=== PATIENT | female | born 1935 | race Caucasian/White ===

== ENCOUNTER 2020-06-23 14:11 | Emergency (ER) | payer BC, OTHER ==
[2020-06-23 14:26] VITALS: BMI 23.6
--- NOTE | 2020-06-23 14:31 | PDOC ---
History of Present Illness - General Chief Complaint: Injury Stated Complaint: FALL RIGHT LEG PAIN Time Seen by Provider: 06/23/20 14:28 - History of Present Illness Initial Comments: 06/23/20 15:26 85 F with HTN, A. fib , Macular degenration, HLD, MDD, dementia BIBA from [facility] for fall. Per EMS, patient had a fall 8 hours ago, on her knees, no LOC, no head hitting. Denies nausea, vomiting, change baseline. At the ED, she is hemodynamically stable, atraumatic Collateral from nursing staff at [facility] revealed she fell twice today. This morning was a witnessed fall on to her knees, no head hitting, LOC. Second fall was an unwitnessed fall. She was found laying on the side. Patient was known to have hip pain. She was able to walk with a walker on baseline. But due to her dementia, she found to walk without a walker. After the fall, she kept complaining of her right hip and knee pain. Code status : DNI, DNR, no IV fluid comfort only. Allergy: none. GENERAL/CONSTITUTIONAL: No fever or chills. No weakness. HEAD, EYES, EARS, NOSE AND THROAT: No change in vision. No ear pain or discharge. No sore throat. CARDIOVASCULAR: No chest pain or shortness of breath RESPIRATORY: No cough, wheezing, or hemoptysis. GASTROINTESTINAL: No nausea, vomiting, diarrhea or constipation. GENITOURINARY: No dysuria, frequency, or change in urination. MUSCULOSKELETAL: +right knee and hip pain. No neck or back pain. SKIN: No rash NEUROLOGIC: No headache, vertigo, loss of consciousness, or change in strength/sensation. ENDOCRINE: No increased thirst. No abnormal weight change HEMATOLOGIC/LYMPHATIC: No anemia, easy bleeding, or history of blood clots. ALLERGIC/IMMUNOLOGIC: No hives or skin allergy. PE GENERAL: Awake, not alert, and not oriented, in no acute distress, demented HEAD: No signs of trauma, normocephalic, atraumatic EYES: PERRLA, EOMI, sclera anicteric, conjunctiva clear ENT: Auricles normal inspection, hearing grossly normal, nares patent, oropharynx clear without exudates. Moist mucosa NECK: Normal ROM, supple, no lymphadenopathy, JVD, or masses LUNGS: No distress, speaks full sentences, clear to auscultation bilaterally HEART: Regular rate and rhythm, normal S1 and S2, no murmurs, rubs or gallops, peripheral pulses normal and equal bilaterally. ABDOMEN: Soft, nontender, normoactive bowel sounds. No guarding, no rebound. No masses EXTREMITIES : Normal inspection, Normal range of motion, no edema. No clubbing or cyanosis. +right hip tenderness NEUROLOGICAL: Cranial nerves II through XII grossly intact. Normal speech, normal gait, no focal sensorimotor deficits SKIN: Warm, Dry, normal turgor, no rashes or lesions noted Past History - Medical History Allergies/Adverse Reactions: Allergies Allergy/AdvReac Type Severity Reaction Status Date / Time No Known Allergies Allergy Verified 06/23/20 14:15 Home Medications: Ambulatory Orders Ascorbate Calcium [Vitamin C] 500 mg PO DAILY 03/07/20 Aspirin [ASA -] 81 mg PO DAILY 03/07/20 Atenolol [Tenormin -] 50 mg PO DAILY 03/07/20 Fluoxetine HCl 20 mg PO DAILY 03/07/20 Levothyroxine [Synthroid -] 50 mcg PO DAILY 03/07/20 Olmesartan Medoxomil 20 mg PO DAILY 03/07/20 Cardiac Disorders: Yes (a fib) COPD: No Dementia: Yes HTN: Yes Hypercholesterolemia: Yes Psychiatric Problems: Yes (depression) Thyroid Disease: Yes Other medical history: macular degeneration - Psycho-Social/Smoking History Smoking History: Never smoked Have you smoked in the past 12 months: No Information on smoking cessation initiated: No - Substance Abuse Hx (Audit-C & DAST Scrn) How often the patient has a drink containing alcohol: Never Score: In Men: 4 or > Positive; In Women: 3 or > Positive: 0 Screen Result (Pos requires Nsg. Audit-10AR): Negative In the last yr the pt used illegal drug/Rx for NonMed reason: No Score: Yes response is considered Positive: 0 Screen Result (Positive result requires Nsg. DAST-10): Negative *Physical Exam - Vital Signs Last Vital Signs Temp Pulse Resp BP Pulse Ox 98.9 F 58 L 16 165/90 96 06/23/20 14:15 06/23/20 14:15 06/23/20 14:15 06/23/20 14:15 06/23/20 14:15 Medical Decision Making - Medical Decision Making 06/23/20 16:13 Imaging then d/c CT scan of the pelvis revealed minimal displaced avulsion fracture of the right greater trochanter. . Called ortho and Made an appointment for her to see outpatient. Patient is safe to go back to the facility. Discharge - Discharge Information Problems reviewed: Yes Clinical Impression/Diagnosis: Closed avulsion fracture of greater trochanter of femur Qualifiers: Encounter type: initial encounter Laterality: right Qualified Code(s): S72.111A - Displaced fracture of greater trochanter of right femur, initial encounter for closed fracture Condition: Stable Disposition: SNF FACILITY - Follow up/Referral Referrals: Karlo Valdes MD [Staff Physician] - Austin Pop [Primary Care Provider] - Johnny Allen MD [Staff Physician] - - Patient Discharge Instructions Additional Instructions: You were seen in the ER for a small avulsion fracture on the greater trochanter of your femur. Although this fracture is causing some pain, you do not need any surgical repair or casting or other intervention at this time. You may return to your chcf facility and weight bear as tolerated. Use your walker every time you walk. Follow up with Dr. Valdes in his clinic at [facility] this (call the number indicated in this packet to make an appointment). Take Tylenol 650 mg every 4 hours for pain. Come back to the ER for any worsening pain and swelling, numbness, tingling, or other emergency concerns. - Post Discharge Activity
--- NOTE | 2020-06-23 15:33 | PDOC ---
Attending Attestation - Resident Resident Name: Ernie French - ED Attending Attestation I have performed the following: I have examined & evaluated the patient, The case was reviewed & discussed with the resident, I agree w/resident's findings & plan, Exceptions are as noted - HPI HPI: 06/23/20 15:32 85YOF with h/o dementia, hypothyroid, HTN, and daily ASA use, who was BIBEMS from her SNF ([facility]) after two falls from ground level with hip/leg pain. She has a history of frequent falls, has been seen here in the ED previously for similar incidents. She is supposed to use a walker at her facility but consistently forgets and was reported to have not been using it today. - Physicial Exam PE: 06/23/20 15:46 GENERAL: elderly, nontoxic-appearing, no distress, answers questions appropriately, pleasantly confused, does not want to be in the ED HEENT: PERRLA, EOMI, moist mucous membranes NECK/BACK: no midline ttp, no spinal stepoff or deformity, no hematoma, full ROM, neck supple CARDIOVASCULAR: regular rate/rhythm, no MGR, strong peripheral pulses, capillary refill <2 seconds, extremities wwp, no edema LUNGS/RESPIRATORY: no respiratory distress, CTAB GI/ABDOMEN: symmetric [id number], normoactive BS, soft, no ttp, no midline pulsatile masses : no CVA tenderness MSK/EXTREMITIES: right lateral hip ttp, no acute-appearing muscle atrophy, no acute deformity DERM/SKIN: warm and dry, no pallor, no jaundice, no rash, no pathologic- appearing bruising, no skin breakdown, no cuts, no lesions NEUROLOGICAL: GCS 15, CN II-XII grossly intact, 5/5 strength proximally and distally, no facial droop - Medical Decision Making 06/23/20 16:16 Elderly female p/w GLFx2 with subsequent left lateral hip pain. Initial Vital Signs Temp Pulse Resp BP Pulse Ox 98.9 F 58 L 16 165/90 96 06/23/20 14:15 06/23/20 14:15 06/23/20 14:15 06/23/20 14:15 06/23/20 14:15 There is concern for hip/pelvis/femur fxr, or less likely hip dislocation. Other possibilities include sprain/strain, contusion, ecchymosis, etc. Unlikely thigh hematoma, compartment syndrome, or other more serious issue given the lack of physical exam findings consistent with these diagnoses. The patient has fallen many times before, seen here in the ED previously, was reportedly walking without her walker Provider Orders Category Date Time Status HEAD CT WITHOUT CONTRAST [CT] Stat CT Scan 06/23/20 14:[address] WITHOUT CONTRAST [CT] Stat CT Scan 06/23/20 15:46 Completed CHEST PA & LAT [RAD] Stat Radiology 06/23/20 14:29 Taken HIP & PELVIS-LEFT [RAD] Stat Radiology 06/23/20 14:29 Taken HIP & PELVIS-RIGHT [RAD] Stat Radiology 06/23/20 14:29 Taken KNEE 2 POS-LEFT [RAD] Stat Radiology 06/23/20 14:29 Taken KNEE 2 POS-RIGHT [RAD] Stat Radiology 06/23/20 14:[address]/PE[address] WITHOUT CONTRAST Evaluate for right hip pain CT scan of the pelvis without intravenous contrast Axial images were obtained from above the level of the iliac crest to below the level of both hip joints. Coronal and sagittal reformatted images were obtained. Compared to prior x-rays of the right hip dated 06/23/2020 There is an avulsion fracture of the right greater trochanter with mild displacement. Otherwise, the right hip joint is in satisfactory alignment Evaluation of the left hip joint appears unremarkable. Evaluation of the soft tissue demonstrates multiple diverticula in the sigmoid colon without evidence of acute diverticulitis. An approximately 1 cm calcific density in right side of the uterus compatible with a calcified fibroid. Extensive vascular calcifications are present. Mild levoscoliosis of the included lower lumbar spine with marked degenerative disc disease at L4- L5 level and mild left lateral subluxation of L4 over L5. There is also moderate to marked degenerative disc disease at L5-S1 level. Impression: Slightly displaced avulsion fracture of the right greater trochanter. The rest of the right hip joint is in satisfa ctory alignment without evidence of a fracture. Left hip joint appears unremarkable. Diverticulosis coli without evidence of acute diverticulitis. Extensive vascular calcifications are present. CT/HEAD CT WITHOUT CONTRAST Cranial CT without contrast CLINICAL INFORMATION: fall The exam consists of contiguous direct transaxial images. Intravenous contrast was not admini stered. No CT evidence of intracranial injury or calvarial fracture. There is no extra-axial fluid collection. No obvious mass lesion or infarct is noted. Moderate to marked confluent periventricular and subcortical white matter microvascular ischemic gliosis is noted. Involutional changes are seen with moderate ventricular dilatation. In comparison to a prior CT exam of 03/28/2020 note is made of almost complete interval resolution of a right forehead scalp hematoma. IMPRESSION: No CT evidence of acute intracranial pathology. Moderate to marked periventricular and subcortical chronic microvascular ischemic changes are seen. The intracranial structures demonstrate no definite interval change in comparison to CT performed on 03/28/2020. RAD/KNEE 2 POS-LEFT Left Knee: Fall. Pain. 2 views the left knee reveal arthritic changes, vascular calcifications but no sign of fracture or subluxation and no sign of blastic or lytic findings. If symptoms persist, further imaging may be of help. RAD/KNEE 2 POS-RIGHT Right knee: Trauma. Pain. 2 views of the right knee reveal no sign of fracture or subluxation and no sign of blastic or lytic changes. There are vascular calcifications. There are arthritic changes. If symptoms persist, further imaging may be of help. Impression: No acute right knee pathology. RAD/CHEST PA LAT Chest: Fall. Pain. Single view of the chest has been submitted. There is a scoliosis with convexity to the right, clear lungs, prominent knob with sclerosis, normal arlet and large heart. Acute chest process is not seen. The angles are sharp. The soft tissues are intact. A gross fracture is not seen. There is no sign of a pneumothorax. If symptoms persist, further imaging may be of help. RAD/HIP PELVIS-RIGHT ADDENDUM ADDENDUM #1 ER Jenise / POP PANDYA notified of findings on 06/23/2020 1930 hours. ORIGINAL REPORT Right hip: Pain. 2 views of the right hip reveal loss of bone density, degenerative changes and a questionable greater trochanter fracture. The SI joints are patent. There are vascular calcifications and pelvic phleboliths. Correlation recommended. Impression : Possible right greater trochanter fracture. Reported By: Frankie Austin MD 06/23/201931 Right hip: Pain. 2 views of the right hip reveal loss of bone density, degenerative changes and a questionable greater trochanter fracture. The SI joints are patent. There are vascular calcifications and pelvic phleboliths. Correlation recommended. Impression : Possible right greater trochanter fracture. RAD/HIP PELVIS-LEFT Pelvis and left hip: Fall. Pain. An AP view of the pelvis and 2 views of the left hip reveal a possible right greater trochanter fracture, intact femoral heads, patent SI joints, degenerative spine changes, pelvic vascular calcifications and retained stool. Blastic or lytic findings are not seen. No other fractures are appreciated. There is calcification by the left greater trochanter. If symptoms persist, further imaging with CT and orthopedic consultation may be of help Last Vital Signs Temp Pulse Resp BP Pulse Ox 98.7 F 69 16 176/86 H 96 06/23/20 16:53 06/23/20 16:53 06/23/20 16:53 06/23/20 16:53 06/23/20 16:53 06/23/20 18:00 I spoke with PRICILA Johnson, his group will kindly see the patient in clinic . No indication for surgery as this is avulsion fxr of the greater trochanter. Patient feeling very well, trying persistently to get up out of bed. She is appropriate for DC back to her SNF and will f/u in clinic. 06/28/20 03:26 Discharge - Discharge Information Problems reviewed: Yes Clinical Impression/Diagnosis: Closed avulsion fracture of greater trochanter of femur Qualifiers: Encounter type: initial encounter Laterality: right Qualified Code(s): S72.111A - Displaced fracture of greater trochanter of right femur, initial encounter for closed fracture Condition: Stable Disposition: [facility]IOR [facility]ARE FACILITY - Admission No - Follow up/Referral Referrals: Austin Pop [Primary Care Provider] - Johnny Allen MD [Staff Physician] - Karlo Valdes MD [Staff Physician] - - Patient Discharge Instructions Additional Instructions: You were seen in the ER for a small avulsion fracture on the greater trochanter of your femur. Although this fracture is causing some pain, you do not need any surgical repair or casting or other intervention at this time. You may return to your custodial facility and weight bear as tolerated. Use your walker every time you walk. Follow up with Dr. Valdes in his clinic at [facility] this (call the number indicated in this packet to make an appointment). Take Tylenol 650 mg every 4 hours for pain. Come back to the ER for any worsening pain and swelling, numbness, tingling, or other emergency concerns. - Post Discharge Activity
[2020-06-23 16:54] VITALS: BP 176/86; PULSE 69; TEMP 98.7
== END 2020-06-23 19:00 ==
LOC: FER 14:11
DX: S72.111A Displaced fracture of greater trochanter of right femur, initial encounter for closed fracture (principal)
CPT/HCPCS: 70450-TC; 71046-TC-FY; 72192-TC; 73523-TC-FY; 73560-TC-LT-FY; 73560-TC-RT-FY; 99285-25